=== PATIENT | male | born 1985 ===

== ENCOUNTER 2020-04-25 08:29 | Emergency (ER) | payer OTHER ==
[~2020-04-25] VITALS: Ht 175.3 cm; Wt 95.5 kg
[2020-04-25 11:45] VITALS: BP 128/86
== END 2020-04-25 12:46 | disposition home or self-care (01) ==
LOC: EMS 08:35
DX: Z03.818 Encounter for observation for suspected exposure to other biological agents ruled out (principal); F17.210 Nicotine dependence, cigarettes, uncomplicated